=== PATIENT | female | born 1960 ===

== ENCOUNTER 2019-02-19 05:48 | Day surgery (SDC) | payer OTHER ==
[~2019-02-19 05:48] MED LIST: CALTRATE 600 +1 EACH PO; CLARITIN5 MG PO; FLONASE16 GM; SINGULAIR10 MG PO
== END 2019-02-19 15:35 | disposition home or self-care (01) ==
LOC: CIR.AMB 05:48
DX: K80.10 Calculus of gallbladder with chronic cholecystitis without obstruction (principal)